=== PATIENT | female | born 1940 | race Caucasian/White ===

== ENCOUNTER 2018-11-01 10:10 | Inpatient (IN) | payer MEDICARE ==
[~2018-11-01] VITALS: Ht 165.1 cm; Wt 68.6 kg
--- NOTE | 2018-11-01 10:16 | NUR ---
ED Nurse Note: PT BROUGHT IN BY [id number] FROM HOME. AOX4. PT C/O RIGHT AND LEFT HIP , 03/21 AFTER FALL X LAST NIGHT. PT STATES SHE DID HIT HER HEAD WHEN FALLING BUT DENIES LOC. CIRCULATION AND SENSATION INTACT, CAP REFILL <3 SECOND, 5/5 MUSCLE STRENGTH OF FEET. SKIN CLEAN, DRY, AND INTACT.
[2018-11-01 10:18] VITALS: BP 136/84
--- NOTE | 2018-11-01 10:21 | NUR ---
ED Nurse Note: JOHNSON CATHETER PLACED USING STERILE TECHNIQUE. JOHNSON CATHETER IS PATENT AND DRAINING CLEAR YELLOW URINE. PT TOLERATED PROCEDURE WELL.
[2018-11-01] MEDS ORDERED: Ketorolac 30mg Inj IV ONE (10:30)
--- NOTE | 2018-11-01 10:50 | NUR ---
ED Nurse Note: PT TO XRAY VIA [facility]
[2018-11-01 11:15] LABS: HEMATOCRIT 41.8 % (37.0-47.0); HEMOGLOBIN 13.9 G/DL (12.0-16.0); MEAN CORPUSCULAR VOLUME 89 FL (80-99); PLATELET COUNT 322 K/UL (150-450); RED BLOOD COUNT 4.72 M/UL (4.20-5.40); RED CELL DISTRIBUTION WIDTH 12.7 % (11.6-14.8); WHITE BLOOD COUNT 13.7 K/UL (4.8-10.8)
[2018-11-01 11:16] LABS: APPEARANCE,URINE CLEAR; BILIRUBIN, URINE NEGATIVE (NEGATIVE); COLOR,URINE PALE YELLOW; GLUCOSE, URINE (UA) 2+ (NEGATIVE); KETONES,URINE 4+ (NEGATIVE); LEUKOCYTE ESTERASE ,URINE NEGATIVE (NEGATIVE); NITRITE,URINE NEGATIVE (NEGATIVE); PH,URINE 5 (4.5-8.0); PROTEIN,URINE 3+ (NEGATIVE); UROBILINOGEN,URINE NORMAL MG/DL (0.0-1.0)
[2018-11-01 11:30] LABS: ANION GAP 14 mmol/L (5-15); BLOOD UREA NITROGEN 13 mg/dL (7-18); CALCIUM 9.7 MG/DL (8.5-10.1); CARBON DIOXIDE 23 MMOL/L (21-32); CHLORIDE 103 MMOL/L (98-107); CREATININE 0.7 MG/DL (0.55-1.30); POTASSIUM 3.6 MMOL/L (3.5-5.1); SODIUM 140 MMOL/L (136-145)
[2018-11-01 11:43] LABS: ALANINE AMINOTRANSFERASE 40 U/L (12-78); ALBUMIN 4.1 G/DL (3.4-5.0); ALBUMIN/GLOBULIN RATIO 0.9 (1.0-2.7); ALKALINE PHOSPHATASE 103 U/L (46-116); ASPARTATE AMINO TRANSFERASE 100 U/L (15-37); BILIRUBIN,TOTAL 0.7 MG/DL (0.2-1.0)
--- NOTE | 2018-11-01 11:44 | NUR ---
ED Nurse Note: PT BACK FROM [facility] VIA [facility]
[2018-11-01 11:48] VITALS: BP 148/88
--- NOTE | 2018-11-01 12:45 | Diagnostic Imaging Report ---
Indication: Chest pain and trauma Technique: One view of the chest Comparison: none Findings: No acute infiltrates, effusions, or congestion. Tortuous calcified aorta. Normal heart size. Upper mediastinum unremarkable. There are degenerative changes of the right shoulder Impression: No acute process.
--- NOTE | 2018-11-01 12:50 | Diagnostic Imaging Report ---
Indication: Reason For Exam: TRAUMA Technique: One view of the pelvis, 2 views of the right hip Comparison: none Findings: There is a fracture of the femoral neck. This is a poorly displaced. Uterine fibroids are demonstrated. There is a Pineda catheter within the bladder. Bones are osteoporotic. There are degenerative changes of the pubic symphysis Impression: Positive for right femoral neck fracture
[2018-11-01] MEDS ORDERED: Metoprolol 5mg/5ml Inj IVP STA ×2 (13:14→15:07)
[2018-11-01] MEDS ORDERED: Sodium Chloride 550 ML IV SCH (13:15)
[2018-11-01 13:38] VITALS: BP 158/71
--- NOTE | 2018-11-01 13:41 | Emergency Room Report ---
History of Present Illness General Chief Complaint: Multiple Trauma/Fall Source: Patient, EMS Present Illness HPI Patient presents via EMS. She fell trying to get groceries out of her car. She believes she stepped on 1 of her shoes and fell onto her right hip. She was unable to get up. She denies any head trauma. She was on the ground for a period of time. Neighbors saw her trunk open and found her on the ground. EMS was called. She was unable to stand. She tries to move her right hip there is pain.She rates that pain 9/10. .If she is not moving pain is minimal. It is aching and sharp. He was cold outside and she feels cold at this time. She has some shivering. Patient denies any chest pain, palpitations, weakness, nausea, vomiting, diarrhea, dysuria, upper respiratory symptoms or rashes. In the past 2 days she has been able to eat without difficulty. She has a history of hypertension Allergies: Coded Allergies: No Known Allergies (Unverified , 11/01/18) Patient History Past Medical History: see triage record Social History: Denies: smoking, alcohol use, drug use Social History Narrative Lives by herself Reviewed Nursing Documentation: PMH: Agreed; PSxH: Agreed Nursing Documentation-PMH Hx Hypertension: Yes Review of Systems All Other Systems: negative except mentioned in HPI Physical Exam Vital Signs Date Time Temp Pulse Resp B/P (MAP) Pulse Ox O2 Delivery O2 Flow Rate FiO2 11/01/18 10:04 98.1 80 20 140/88 98 Room Air Sp02 EP Interpretation: reviewed, normal General Appearance: well appearing, no apparent distress, GCS 15 Head: normocephalic, atraumatic Eyes: bilateral eye normal inspection, bilateral eye PERRL, bilateral eye EOMI ENT: moist mucus membranes Neck: supple Respiratory: lungs clear, normal breath sounds Cardiovascular #1: regular rate, rhythm, no edema Cardiovascular #2: 2+ radial (R), 2+ dorsalis pedis (R) Gastrointestinal: normal inspection, normal bowel sounds, non tender, no mass, non-distended Genitourinary: no CVA tenderness Musculoskeletal: back normal, pelvis stable, decreased range of motion - Right hip with pain with passive range of motion no knee Neurologic: alert, oriented x3, cheese sprayer III-XII nml as tested, motor strength/tone normal, DTRs symmetric, sensory intact Psychiatric: mood/affect normal Skin: normal inspection, warm/dry Medical Decision Making Diagnostic Impression: Primary Impression: Hip fracture, right Qualified Codes: S72.001A - Fracture of unspecified part of neck of right femur, initial encounter for closed fracture Additional Impressions: NSTEMI (non-ST elevated myocardial infarction) Leukocytosis Qualified Codes: D72.829 - Elevated white blood cell count, unspecified ER Course Patient presents after non-syncopal fall with right hip pain. Differential includes fracture, contusion amongst others. Evaluation will be with EKG, chest x-ray, x-rays of the hip and pelvis as well as labs. Patient will be treated with analgesia. She is warmed with warm blankets. EKG sinus tachycardia without injury. Labs significant for positive troponin. Chest x-ray no infiltrates. Hip and pelvis reveal surgical neck fracture. Leukocytosis. Elevated lactic acid Aspirin and metoprolol given. No identified source of infection. Leukocytosis may be related to fall. Discussed with Dr. Melissa Ariza EPRP - decision keep patient here for repeat troponin determinations and adequate analgesia. Contacted Dr. Rios for admission. Contact Dr. Lane for consultation. Laboratory Tests Test 11/01/18 10:51 11/01/18 13:25 11/01/18 17:00 White Blood Count 13.7 K/UL (4.8-10.8) H Red Blood Count 4.72 M/UL (4.20-5.40) Hemoglobin 13.9 G/DL (12.0-16.0) Hematocrit 41.8 % (37.0-47.0) Mean Corpuscular Volume 89 FL (80-99) Mean Corpuscular Hemoglobin 29.5 PG (27.0-31.0) Mean Corpuscular Hemoglobin Concent 33.4 G/DL (32.0-36.0) Red Cell Distribution Width 12.7 % (11.6-14.8) Platelet Count 322 K/UL (150-450) Mean Platelet Volume 6.0 FL (6.5-10.1) L Neutrophils (%) (Auto) % (45.0-75.0) Lymphocytes (%) (Auto) % (20.0-45.0) Monocytes (%) (Auto) % (1.0-10.0) Eosinophils (%) (Auto) % (0.0-3.0) Basophils (%) (Auto) % (0.0-2.0) Differential Total Cells Counted 100 Neutrophils % (Manual) 89 % (45-75) H Lymphocytes % (Manual) 8 % (20-45) L Monocytes % (Manual) 1 % (1-10) Eosinophils % (Manual) 0 % (0-3) Basophils % (Manual) 0 % (0-2) Band Neutrophils 2 % (0-8) Platelet Estimate Adequate Platelet Morphology Normal Prothrombin Time 10.3 SEC (9.30-11.50) Prothrombin Time INR 1.0 (0.9-1.1) PTT 25 SEC (23-33) Urine Color Pale yellow Urine Appearance Clear Urine pH 5 (4.5-8.0) Urine Specific [place] 1.020 (1.005-1.035) Urine Protein 3+ (NEGATIVE) H Urine Glucose (UA) 2+ (NEGATIVE) H Urine Ketones 4+ (NEGATIVE) H Urine Blood 5+ (NEGATIVE) H Urine Nitrite Negative (NEGATIVE) Urine Bilirubin Negative (NEGATIVE) Urine Urobilinogen Normal MG/DL (0.0-1.0) Urine Leukocyte Esterase Negative (NEGATIVE) Urine RBC 2-4 /HPF (0 - 2) H Urine WBC 0-2 /HPF (0 - 2) Urine Squamous Epithelial Cells Occasional /LPF Urine Bacteria Few /HPF (NONE) Sodium Level 140 MMOL/L (136-145) Potassium Level 3.6 MMOL/L (3.5-5.1) Chloride Level 103 MMOL/L (98-107) Carbon Dioxide Level 23 MMOL/L (21-32) Anion Gap 14 mmol/L (5-15) Blood Urea Nitrogen 13 mg/dL (7-18) Creatinine 0.7 MG/DL (0.55-1.30) Estimate Glomerular Filtration Rate mL/min (>60) Glucose Level 143 MG/DL (74-106) H Lactic Acid Level 3.00 mmol/L (0.4-2.0) H 2.10 mmol/L (0.66-2.22) Calcium Level 9.7 MG/DL (8.5-10.1) Total Bilirubin 0.7 MG/DL (0.2-1.0) Aspartate Amino Transferase (AST) 100 U/L (15-37) H Alanine Aminotransferase (ALT) 40 U/L (12-78) Alkaline Phosphatase 103 U/L (46-116) Troponin I 1.953 ng/mL (0.000-0.056) 2.482 ng/mL (0.000-0.056) Total Protein 8.5 G/DL (6.4-8.2) H Albumin 4.1 G/DL (3.4-5.0) Globulin 4.4 g/dL Albumin/Globulin Ratio 0.9 (1.0-2.7) L Thyroid Stimulating Hormone (TSH) 0.892 uiU/mL (0.358-3.740) EKG Diagnostic Results Rate: tachycardiac Rhythm: NSR ST Segments: no acute changes Rhythm Strip Diag. Results EP Interpretation: yes Rhythm: no PVC's, no ectopy, other - ST Chest X-Ray Diagnostic Results Chest X-Ray Diagnostic Results : Chest X-Ray Ordered: Yes # of Views/Limited/Complete: 1 View Indication: Other EP Interpretation: Yes Interpretation: no consolidation, no effusion, no pneumothorax Impression: No acute disease Electronically Signed by: Electronically signed by Adrian Reyes MD Other X-Ray Diagnostic Results Other X-Ray Diagnostic Results #1: X-Ray ordered: Pelvis # of Views/Limited Vs Complete: 1 View Indication: Pain Interpretation: no dislocation, no soft tissue swelling, other - Right hip fracture Impression: Other Electronically Signed by: Electronically signed by Adrian Reyes MD Other X-Ray Diagnostic Results #2: X-Ray ordered: Right hip # of Views/Limited Vs Complete: 3 View Indication: Pain Interpretation: no dislocation, no soft tissue swelling, other - Regular fracture Impression: Other Electronically Signed by: Electronically signed by Adrian Reyes MD Last Vital Signs Date Time Temp Pulse Resp B/P (MAP) Pulse Ox O2 Delivery O2 Flow Rate FiO2 11/01/18 20:54 90 154/75 11/01/18 20:16 97.6 22 100 Room Air Status: improved Disposition: ADMITTED INPATIENT Condition: Serious Referrals: [facility] (PCP) Adrian Reyes MD Nov 01, 2018 13:41
[2018-11-01] MEDS ORDERED: Zolpidem 5mg tab ORAL PRN (15:45)
[2018-11-01] MEDS ORDERED: Morphine Sulfate 2mg/ml Inj(IV/IM USE ONLY) IVP PRN (15:45)
[2018-11-01] MEDS ORDERED: LORazepam Inj 2mg/ml 1ml IV PRN (15:45)
[2018-11-01] MEDS ORDERED: Miralax 17gm pkt ORAL PRN (15:45)
[2018-11-01] MEDS ORDERED: Morphine Sulfate 4mg/ml Inj (IV USE ONLY) IVP PRN (15:45)
[2018-11-01] MEDS ORDERED: Mylanta II UD 30ml ORAL PRN (15:45)
--- NOTE | 2018-11-01 16:28 | NUR ---
ED Nurse Note: called laborer cheesemaking for repeat Troponin level.
--- NOTE | 2018-11-01 16:36 | Cardiology Report ---
APPROVED REPORT EXAM: Two-dimensional and M-mode echocardiogram with Doppler and color Doppler. INDICATION LV FUNCTION M-Mode DIMENSIONS IVSd1.1 (0.7-1.1cm)Left Atrium (MM)1.9 (1.6-4.0cm) LVDd3.4 (3.5-5.6cm)Aortic Root2.7 (2.0-3.7cm) PWd1.0 (0.7-1.1cm)Aortic Cusp Exc.1.6 (1.5-2.0cm) IVSs1.1 cm LVDs2.4 (2.5-4.0cm) PWs1.0 cm Normal left ventricular chamber size, systolic function and wall motion. Left ventricular ejection fraction estimated to be 60%. No evidence of left ventricular hypertrophy. No evidence pericardial fat or effusion. All other cardiac chamber sizes are within normal limits. Aortic valve sclerosis with adequate cusp excursion. Thickened mitral valve leaflets with normal excursion. Cannot rule out vegetation. Mild mitral annulus and aortic root calcification. Pulmonic valve not well visualized. IVC at normal size with physiologic collapse . A color flow and spectral Doppler study was performed and revealed: No aortic regurgitation. Mitral diastolic velocities suggest reduced left ventricular relaxation c/w mild LV diastolic dysfunction (Grade I ). Trace mitral regurgitation. Mild tricuspid regurgitation. Tricuspid systolic velocities suggests peak right ventricular systolic pressure of 52 mmHg,consistent with moderate pulmonary hypertension .
--- NOTE | 2018-11-01 16:44 | NUR ---
ED Nurse Note: CLAUDIA LOJA (DAUGHTER IN LAW): [phone]
--- NOTE | 2018-11-01 16:50 | Cardiac Electrophysiology PN ---
Subjective Subjective [id number] Objective Last 24 Hour Vital Signs Date Time Temp Pulse Resp B/P (MAP) Pulse Ox O2 Delivery O2 Flow Rate FiO2 11/01/18 15:10 100 145/62 11/01/18 13:38 97.4 87 20 158/71 100 Room Air 11/01/18 13:27 111 146/65 11/01/18 11:48 98.4 86 20 148/88 99 Room Air 11/01/18 10:18 98.3 76 18 136/84 99 Room Air 11/01/18 10:18 76 18 Room Air 11/01/18 10:04 98.1 80 20 140/88 98 Room Air Laboratory Tests Test 11/01/18 10:51 11/01/18 13:25 White Blood Count 13.7 K/UL (4.8-10.8) H Red Blood Count 4.72 M/UL (4.20-5.40) Hemoglobin 13.9 G/DL (12.0-16.0) Hematocrit 41.8 % (37.0-47.0) Mean Corpuscular Volume 89 FL (80-99) Mean Corpuscular Hemoglobin 29.5 PG (27.0-31.0) Mean Corpuscular Hemoglobin Concent 33.4 G/DL (32.0-36.0) Red Cell Distribution Width 12.7 % (11.6-14.8) Platelet Count 322 K/UL (150-450) Mean Platelet Volume 6.0 FL (6.5-10.1) L Neutrophils (%) (Auto) % (45.0-75.0) Lymphocytes (%) (Auto) % (20.0-45.0) Monocytes (%) (Auto) % (1.0-10.0) Eosinophils (%) (Auto) % (0.0-3.0) Basophils (%) (Auto) % (0.0-2.0) Differential Total Cells Counted 100 Neutrophils % (Manual) 89 % (45-75) H Lymphocytes % (Manual) 8 % (20-45) L Monocytes % (Manual) 1 % (1-10) Eosinophils % (Manual) 0 % (0-3) Basophils % (Manual) 0 % (0-2) Band Neutrophils 2 % (0-8) Platelet Estimate Adequate Platelet Morphology Normal Prothrombin Time 10.3 SEC (9.30-11.50) Prothromb Time International Ratio 1.0 (0.9-1.1) Activated Partial Thromboplast Time 25 SEC (23-33) Urine Color Pale yellow Urine Appearance Clear Urine pH 5 (4.5-8.0) Urine Specific [place] 1.020 (1.005-1.035) Urine Protein 3+ (NEGATIVE) H Urine Glucose (UA) 2+ (NEGATIVE) H Urine Ketones 4+ (NEGATIVE) H Urine Blood 5+ (NEGATIVE) H Urine Nitrite Negative (NEGATIVE) Urine Bilirubin Negative (NEGATIVE) Urine Urobilinogen Normal MG/DL (0.0-1.0) Urine Leukocyte Esterase Negative (NEGATIVE) Urine RBC 2-4 /HPF (0 - 2) H Urine WBC 0-2 /HPF (0 - 2) Urine Squamous Epithelial Cells Occasional /LPF Urine Bacteria Few /HPF (NONE) Sodium Level 140 MMOL/L (136-145) Potassium Level 3.6 MMOL/L (3.5-5.1) Chloride Level 103 MMOL/L (98-107) Carbon Dioxide Level 23 MMOL/L (21-32) Anion Gap 14 mmol/L (5-15) Blood Urea Nitrogen 13 mg/dL (7-18) Creatinine 0.7 MG/DL (0.55-1.30) Estimat Glomerular Filtration Rate mL/min (>60) Glucose Level 143 MG/DL (74-106) H Lactic Acid Level 3.00 mmol/L (0.4-2.0) H 2.10 mmol/L (0.66-2.22) Calcium Level 9.7 MG/DL (8.5-10.1) Total Bilirubin 0.7 MG/DL (0.2-1.0) Aspartate Amino Transf (AST/SGOT) 100 U/L (15-37) H Alanine Aminotransferase (ALT/SGPT) 40 U/L (12-78) Alkaline Phosphatase 103 U/L (46-116) Troponin I 1.953 ng/mL (0.000-0.056) Total Protein 8.5 G/DL (6.4-8.2) H Albumin 4.1 G/DL (3.4-5.0) Globulin 4.4 g/dL Albumin/Globulin Ratio 0.9 (1.0-2.7) L Thyroid Stimulating Hormone (TSH) 0.892 uiU/mL (0.358-3.740) Adan Berman MD Nov 01, 2018 16:50
--- NOTE | 2018-11-01 17:45 | NUR ---
ED Nurse Note: Dr. Perez notified of Troponin level 2.482.
--- NOTE | 2018-11-01 18:26 | NUR ---
ED Nurse Note: SDU CALLED FOR PT REPORT. PER CHARGE, ROOM STILL NOT READY. WILL CALL BACK IN 15-20 MINUTES PER CHARGE.
--- NOTE | 2018-11-01 19:05 | NUR ---
ED Nurse Note: report recieved from estela vidal pt stable awaiting room transfer
--- NOTE | 2018-11-01 19:38 | NUR ---
ED Nurse Note: ATTEMPTED TO GIVE TELEPHONE REPORT TO SHANICE GONZALES. UNABLE TO DO SO AT THIS TIME.
[2018-11-01 20:00] VITALS: BP 154/75
--- NOTE | 2018-11-01 20:01 | NUR ---
ED Nurse Note: TELEPHONE REPORT GIVE TO SHANICE GONZALES
--- NOTE | 2018-11-01 20:10 | NUR ---
NURSE NOTES: Received report from Janette RN, pt. brought up from ER, pt. in bed awake/ alert x's 3- alert to name, and place- pt. is able to make need known. Cardiac monitoring placed, pt.appears to be sating well on room air at 97%- no distress noted full body assessment done- skin intact- pt. has purplish discoloration to left wrist/ forearm area, scab to Rt. knee and Rt. knee area, pt. has Pineda intact and draining to gravity, bed alarm on, side rails up x's3 and safety brakes engaged, call light within easy reach and safety brakes engaged, pt. has RFA 22G- IV intact and patent, pt. appears to be resting comfortably in bed, bed bath given and linens changed, safety measures continued, will continue with plan of care.
--- NOTE | 2018-11-01 20:14 | NUR ---
ED Nurse Note: PT WAS TRASNFERRED TO SDU WITH MCKENZIE, EMT AND ELIJAH RN ACCOMPANIED BY [employer]ICAL MIXER. ALL PT BELONGINGS GIVEN TO PT, PT IS AOX4, ON ROOM AIR, SKIN INTACT, PT IS IN NO DISTRESS VSS
--- NOTE | 2018-11-01 20:15 | Consultation ---
DATE OF CONSULTATION: 11/01/2018 CARDIOLOGY CONSULTATION CONSULTING PHYSICIAN: Adan Berman M.D. REFERRING PHYSICIAN: Yon Rios M.D. REASON FOR CONSULTATION: Non-ST elevation myocardial infarction in a patient with history of hypertension, hip fracture. HISTORY OF PRESENT ILLNESS: The patient is a 77-year-old lady with history of hypertension, had a fall that resulted in right hip fracture. The patient is a [place] patient. At the time of my evaluation, the patient is still in the emergency room. Denies any chest pain or palpitation or shortness of breath. In the ER, her blood pressure was 140/88, pulse of 80, respirations 20, and temperature 98.1. PHYSICAL EXAMINATION: HEAD AND NECK: Shows no JVD or carotid bruit. LUNGS: Clear. CARDIOVASCULAR: Regular S1 and S2 with no gallop or murmur. ABDOMEN: Soft. EXTREMITIES: Right hip external rotation. LABORATORY AND DIAGNOSTIC DATA: Her laboratories show white count of 13.7, hemoglobin of 13.9, hematocrit 41.8, and platelet count is 322. Her sodium is 140, potassium 3.6, BUN of 13, and creatinine of 0.7. Her troponin is 1.953. Her TSH is 0.892. EKG showed sinus tachycardia with nonspecific ST-T wave abnormalities. ASSESSMENT/PLAN: 1. Non-ST elevation myocardial infarction. The patient's troponin is 1.95. EKG does not show any ST elevation. The patient denies any chest pain in the emergency room. We will completely rule out myocardial infarction protocol and repeat EKG and get an echocardiogram to evaluate for ejection fraction and wall motion abnormality. In the meantime, keep the patient on aspirin and beta-suzy. Avoid full anticoagulation in view of her hip fracture. 2. Hypertension. Keep the patient on metoprolol 25 mg. 3. Right hip fracture. Ortho evaluation is pending. Thank you very much, Dr. Rios, for allowing me to participate in the care of this patient. Please do not hesitate to contact me for any questions regarding my evaluation. Sincerely, Adan Berman M.D. DR: LUCIANA/donavan JOB#: [id number] CC:
[2018-11-01] MEDS: Heparin 5000 units/ml inj SUBQ SCH (20:54)
[2018-11-01] MEDS: Metoprolol Tartrate 12.5mg TAB ORAL SCH (20:54)
[2018-11-01] MEDS: D5 1/2NS 1,000 ML IV SCH (20:59)
[2018-11-02] VITALS: BP 129/69
[2018-11-02 03:28] LABS: BASOPHILS % (AUTO) 0.7 % (0.0-2.0); HEMATOCRIT 35.4 % (37.0-47.0); HEMOGLOBIN 11.9 G/DL (12.0-16.0); LYMPHOCYTES % (AUTO) 18.6 % (20.0-45.0); MEAN CORPUSCULAR VOLUME 88 FL (80-99); MONOCYTES % (AUTO) 6.4 % (1.0-10.0); NEUTROPHILS % (AUTO) 74.3 % (45.0-75.0); PLATELET COUNT 270 K/UL (150-450); RED CELL DISTRIBUTION WIDTH 12.9 % (11.6-14.8); WHITE BLOOD COUNT 13.4 K/UL (4.8-10.8)
[2018-11-02 03:56] LABS: ALANINE AMINOTRANSFERASE 42 U/L (12-78); ALBUMIN 3.3 G/DL (3.4-5.0); ALKALINE PHOSPHATASE 83 U/L (46-116); ANION GAP 9 mmol/L (5-15); ASPARTATE AMINO TRANSFERASE 114 U/L (15-37); BILIRUBIN,TOTAL 0.5 MG/DL (0.2-1.0); BLOOD UREA NITROGEN 20 mg/dL (7-18); CALCIUM 8.8 MG/DL (8.5-10.1); CARBON DIOXIDE 27 MMOL/L (21-32); CHLORIDE 107 MMOL/L (98-107); CHOLESTEROL 234 MG/DL (< 200); CREATININE 0.7 MG/DL (0.55-1.30); HDL CHOLESTEROL 102 MG/DL (40-60); POTASSIUM 3.1 MMOL/L (3.5-5.1); SODIUM 143 MMOL/L (136-145); TRIGLYCERIDES 74 MG/DL (30-150)
[2018-11-02 04:00] VITALS: BP 134/64
--- NOTE | 2018-11-02 07:07 | NUR ---
HAND-OFF: Report given to Nena PRASAD, pt. remains stable and no signs of distress noted.
--- NOTE | 2018-11-02 07:18 | Consultation ---
Consult Note Consult Note patient seen and evaluated. Right Hip subcapital femoral neck fracture. Will need a hip hemiarthroplasty. Ok to transfer to [place] once [place] is ruled out by cardiology. If not transfered, will consider proceeding with right hip hemiarthroplasty. Thank you Malik Singh MD Nov 02, 2018 07:18
--- NOTE | 2018-11-02 07:52 | NUR ---
NURSE NOTES: Report received from SHANICE uW. Observed patient in bed sleeping. Arousable by voice and verbally responsive with confusion. No s/s of pain at this time. IV site intact with ongoing IVF running at prescribed rate. No distress noted in room air. F/C intact and draining well. Bed in lowest position. Call light within reach. Will continue to monitor.
--- NOTE | 2018-11-02 07:55 | NUR ---
NURSE NOTES: Called and spoke with Dr. Barragan regarding low potassium level with new order. Order carried out.
[2018-11-02 08:00] VITALS: BP 136/70
[2018-11-02] MEDS ORDERED: Aspirin EC 81mg tab ORAL SCH (09:00)
[2018-11-02] MEDS: Metoprolol Tartrate 12.5mg TAB ORAL SCH ×2 (09:01→20:18)
[2018-11-02] MEDS: Heparin 5000 units/ml inj SUBQ SCH ×2 (09:02→20:14)
--- NOTE | 2018-11-02 09:30 | NUR ---
NURSE NOTES: Spoke with ANISHA Don regarding transfer the patient to [place] for hip surgery. Florencia told me to get clearance from [facility] to transfer the patient. Will contact with Dr. Berman.
--- NOTE | 2018-11-02 09:37 | NUR ---
Social Service Note SW contacted [facility] [phone], no correctional case manager assigned at this time. Once they round this morning CM will contact SW for possible transfer. ANISHA discussed with primary nurse to obtain cardio clearance for transfer. Will follow up.
--- NOTE | 2018-11-02 09:58 | NUR ---
NURSE NOTES: Called and spoke with Dr. Berman to have clearance to transfer the patient to [place] for surgery. Dr. Berman said he will stop by. Awaiting for doctor to come.
[2018-11-02] MEDS ORDERED: Potassium Chloride 40 MEQ in Sodium Chloride 550 ML IVPB SCH (11:00)
--- NOTE | 2018-11-02 11:06 | Consultation ---
History of Present Illness General Date patient seen: Nov 02, 2018 Chief Complaint: Multiple Trauma/Fall Reason for Consultation: inpatient management Present Illness HPI 77 year old female with hx of HTN, Parkinson presented to ER via EMS after falling onto her right hip. She was unable to get up. She denies any head trauma. She was on the ground for a period of time. She was diagnosed to have a hip fracture and her troponin was positive as well ( I don't know if there was any reason to draw troponin). she is admitted to [facility]. She is currently awake and the hip pain seems to be controlled. Allergies: Coded Allergies: No Known Allergies (Unverified , 11/01/18) Medication History Unable to Obtain Active Prescriptions or Reported Meds Patient History Healthcare decision maker Resuscitation status Full Code Advanced Directive on File Past Medical/Surgical History Past Medical/Surgical History: (1) Parkinson disease (2) History of hypertension Review of Systems All Other Systems: negative except mentioned in HPI Physical Exam General Appearance: WD/WN Lines, tubes and drains: peripheral HEENT: normocephalic, anicteric Neck: non-tender, normal alignment Respiratory/Chest: chest wall non-tender, lungs clear Cardiovascular/Chest: normal peripheral pulses, normal rate, regular rhythm Abdomen: normal bowel sounds, non tender Genitourinary/Rectal: normal genital exam Extremities: normal range of motion Last 24 Hour Vital Signs Date Time Temp Pulse Resp B/P (MAP) Pulse Ox O2 Delivery O2 Flow Rate FiO2 11/02/18 09:01 98 136/70 11/02/18 08:00 96 11/02/18 08:00 Room Air 11/02/18 08:00 99.2 98 25 136/70 (92) 97 11/02/18 04:00 98.4 76 24 134/64 (87) 97 11/02/18 04:00 Room Air 11/02/18 04:00 78 11/02/18 00:00 98.9 80 16 129/69 (89) 97 11/02/18 00:00 93 11/02/18 00:00 Room Air 11/01/18 20:54 90 154/75 11/01/18 20:16 97.6 91 22 140/69 100 Room Air 11/01/18 20:10 Room Air 11/01/18 20:10 Room Air 2/20/19 20:10 96 11/01/18 20:00 98.9 92 22 154/75 (101) 98 11/01/18 15:10 100 145/62 11/01/18 13:38 97.4 87 20 158/71 100 Room Air 11/01/18 13:27 111 146/65 11/01/18 11:48 98.4 86 20 148/88 99 Room Air Intake and Output 11/01/18 11/02/18 19:00 07:00 Intake Total 1051 ml Output Total 400 ml Balance 651 ml Intake IV Total 1051 ml Output Urine Total 400 ml Laboratory Tests Test 11/01/18 13:25 11/01/18 17:00 11/02/18 02:54 Lactic Acid Level 2.10 mmol/L (0.66-2.22) Troponin I 2.482 ng/mL (0.000-0.056) 1.846 ng/mL (0.000-0.056) White Blood Count 13.4 K/UL (4.8-10.8) H Red Blood Count 4.00 M/UL (4.20-5.40) L Hemoglobin 11.9 G/DL (12.0-16.0) L Hematocrit 35.4 % (37.0-47.0) L Mean Corpuscular Volume 88 FL (80-99) Mean Corpuscular Hemoglobin 29.7 PG (27.0-31.0) Mean Corpuscular Hemoglobin Concent 33.7 G/DL (32.0-36.0) Red Cell Distribution Width 12.9 % (11.6-14.8) Platelet Count 270 K/UL (150-450) Mean Platelet Volume 6.4 FL (6.5-10.1) L Neutrophils (%) (Auto) 74.3 % (45.0-75.0) Lymphocytes (%) (Auto) 18.6 % (20.0-45.0) L Monocytes (%) (Auto) 6.4 % (1.0-10.0) Eosinophils (%) (Auto) 0.0 % (0.0-3.0) Basophils (%) (Auto) 0.7 % (0.0-2.0) Sodium Level 143 MMOL/L (136-145) Potassium Level 3.1 MMOL/L (3.5-5.1) L Chloride Level 107 MMOL/L (98-107) Carbon Dioxide Level 27 MMOL/L (21-32) Anion Gap 9 mmol/L (5-15) Blood Urea Nitrogen 20 mg/dL (7-18) H Creatinine 0.7 MG/DL (0.55-1.30) Estimat Glomerular Filtration Rate mL/min (>60) Glucose Level 124 MG/DL (74-106) H Calcium Level 8.8 MG/DL (8.5-10.1) Total Bilirubin 0.5 MG/DL (0.2-1.0) Aspartate Amino Transf (AST/SGOT) 114 U/L (15-37) H Alanine Aminotransferase (ALT/SGPT) 42 U/L (12-78) Alkaline Phosphatase 83 U/L (46-116) Total Protein 6.5 G/DL (6.4-8.2) Albumin 3.3 G/DL (3.4-5.0) L Globulin 3.2 g/dL Albumin/Globulin Ratio 1.0 (1.0-2.7) Triglycerides Level 74 MG/DL (30-150) Cholesterol Level 234 MG/DL (< 200) H LDL Cholesterol 106 mg/dL (<100) H HDL Cholesterol 102 MG/DL (40-60) H Cholesterol/HDL Ratio 2.3 (3.3-4.4) L Thyroid Stimulating Hormone (TSH) 1.320 uiU/mL (0.358-3.740) Height (Feet): 5 Height (Inches): 5.00 Weight (Pounds): 151 Medications Current Medications Medications (Trade) Dose Ordered Sig/Padma Route PRN Reason Start Time Stop Time Status Last Admin Dose Admin Acetaminophen (Tylenol) 650 mg Q4H PRN ORAL fever 11/01/18 15:45 12/01/18 15:44 Al Hydroxide/Mg Hydroxide (Mylanta II) 30 ml Q6H PRN ORAL dyspepsia 11/01/18 15:45 12/01/18 15:44 Aspirin (Ecotrin) 81 mg DAILY ORAL 11/02/18 09:00 12/02/18 08:59 11/02/18 09:01 Dextrose (Dextrose 50%) 25 ml Q30M PRN IV Hypoglycemia 11/01/18 15:45 12/01/18 15:44 Dextrose (Dextrose 50%) 50 ml Q30M PRN IV Hypoglycemia 11/01/18 15:45 12/01/18 15:44 Dextrose/Sodium Chloride 1,000 ml @ 50 mls/hr Q20H IV 11/01/18 15:35 12/01/18 15:34 11/01/18 20:59 Heparin Sodium (Porcine) (Heparin 5000 units/ml) 5,000 units EVERY 12 HOURS SUBQ 11/01/18 21:00 12/01/18 20:59 11/02/18 09:02 Levofloxacin 100 ml @ 100 mls/hr Q24H IVPB 11/02/18 10:45 11/09/18 10:44 UNV Lorazepam (Ativan 2mg/ml 1ml) 0.5 mg Q4H PRN IV For Anxiety 11/01/18 15:45 11/08/18 15:44 Metoprolol Tartrate (Lopressor) 12.5 mg Q12HR ORAL 11/01/18 21:00 12/01/18 20:59 11/02/18 09:01 Morphine Sulfate (Morphine Sulfate) 2 mg Q4H PRN IVP For Pain 4-6 11/01/18 15:45 11/08/18 15:44 11/02/18 09:01 Morphine Sulfate (Morphine Sulfate) 4 mg Q4H PRN IVP For Pain 7-10 11/01/18 15:45 11/08/18 15:44 Ondansetron HCl (Zofran) 4 mg Q6H PRN IVP Nausea & Vomiting 11/01/18 15:45 12/01/18 15:44 Polyethylene Glycol (Miralax) 17 gm HSPRN PRN ORAL Constipation 11/01/18 15:45 12/01/18 15:44 Potassium Chloride 100 ml @ 100 mls/hr Q1HR IVPB 11/02/18 12:00 11/02/18 15:59 Zolpidem Tartrate (Ambien) 5 mg HSPRN PRN ORAL Insomnia 11/01/18 15:45 11/08/18 15:44 Assessment/Plan Problem List: (1) NSTEMI (non-ST elevated myocardial infarction) ICD Codes: I21.4 - Non-ST elevation (NSTEMI) myocardial infarction SNOMED: 44314601 (2) Hip fracture, right ICD Codes: S72.001A - Fracture of unspecified part of neck of right femur, initial encounter for closed fracture SNOMED: 011300553 Qualifiers: Qualified Codes: S72.001A - Fracture of unspecified part of neck of right femur, initial encounter for closed fracture (3) Leukocytosis ICD Codes: D72.829 - Elevated white blood cell count, unspecified SNOMED: 152805751, 431591572 Qualifiers: Qualified Codes: D72.829 - Elevated white blood cell count, unspecified (4) History of hypertension ICD Codes: Z86.79 - Personal history of other diseases of the circulatory system SNOMED: 427968264 Assessment/Plan symptomatic treatment check electrolytes Echocardiogram serial EKG symptomatic treatment find out patients home medications, check electrolytes Shae Barragan MD Nov 02, 2018 11:06
[2018-11-02] MEDS: D5 1/2NS 1,000 ML IV SCH (11:28)
[2018-11-02 12:00] VITALS: BP 138/69
--- NOTE | 2018-11-02 13:19 | NUR ---
[facility] DEAN 77 YO FEMALE BIBA FROM HOME TO ER CC BILATERAL HIP PAIN S/P FALL SI; RIGHT HIP FRACTURE T. 98.1 HR 80 RR 20 B/P 140/88 WBC 13.7 AST 100 TROP 1.953 UA+ PROTEIN,GLUCOSE,RBC,BACTERIA,BLOOD CXR= NO ACUTE PROCESS PELVIS X-RAY= RIGHT FEMORAL NECK FRACTURE RIGHT HIP X-RAY= FRACTURE IS: TORADOL IV ZOFRAN IV ADMITTED TO STEP DOWN STEP DOWN STATUS DCP POSSIBLE TRANSFER TO [facility]
[2018-11-02] MEDS ORDERED: OXYBUTYNIN CHLOR5 M1 ORAL (13:49)
[2018-11-02] MEDS ORDERED: WELCHOL625 MG ORAL (13:49)
[2018-11-02] MEDS ORDERED: AVAPRO150 MG ORAL (13:49)
[2018-11-02] MEDS ORDERED: TRAZODONE HCL50 MG ORAL (13:49)
[2018-11-02] MEDS ORDERED: AMLODIPINE BESYL5 MG ORAL (13:49)
[2018-11-02] MEDS ORDERED: ASPIRIN-LOW81 MG ORAL (13:49)
[2018-11-02] MEDS ORDERED: TERAZOSIN HCL2 MG PO (13:49)
[2018-11-02] MEDS ORDERED: HYDROCHLOROTHIA25 MG ORAL (13:49)
[2018-11-02] MEDS ORDERED: DIOVAN HCT 80MG1 TAB ORAL (13:49)
[2018-11-02] MEDS ORDERED: COLESTID ORAL (13:49)
--- NOTE | 2018-11-02 13:59 | Anethesia Preoperative Eval ---
Anesthesia Pre-op PMH/ROS General Date of Evaluation: Nov 02, 2018 Time of Evaluation: 13:32 Anesthesiologist: Calixto ASA Score: ASA 3 Mallampati Score Class I : Soft palate, uvula, fauces, pillars visible Class II: Soft palate, uvula, fauces visible Class III: Soft palate, base of uvula visible Class IV: Only hard plate visible Mallampati Classification: Class II Surgeon: Francisco Diagnosis: R Hip Fracture Surgical Procedure: R Hip Hemiarthroplasty Anesthesia History: none Family History: no anesthesia problems Allergies: Coded Allergies: No Known Allergies (Unverified , 11/01/18) Medications: see eMAR Patient NPO?: Yes Past Medical History Cardiovascular: Reports: HTN, CAD - Non ST Segment Elevation IL, IL Hematology/Immune: Reports: anemia Anesthesia Pre-op Phys. Exam Physician Exam Last Vital Signs Date Time Temp Pulse Resp B/P (MAP) Pulse Ox O2 Delivery O2 Flow Rate FiO2 11/02/18 12:00 Room Air 11/02/18 12:00 88 11/02/18 09:01 136/70 11/02/18 08:00 99.2 25 97 Constitutional: NAD Neurologic: CN 2-12 intact Cardiovascular: RRR Respiratory: CTA Gastrointestinal: S/NT/ND Airway Exam Mallampati Score: Class II MO: limited ROM: limited Teeth: missing, intact Anesthesia Pre-op A/P Labs Hematology Test 11/02/18 02:54 White Blood Count 13.4 K/UL (4.8-10.8) H Red Blood Count 4.00 M/UL (4.20-5.40) L Hemoglobin 11.9 G/DL (12.0-16.0) L Hematocrit 35.4 % (37.0-47.0) L Mean Corpuscular Volume 88 FL (80-99) Mean Corpuscular Hemoglobin 29.7 PG (27.0-31.0) Mean Corpuscular Hemoglobin Concent 33.7 G/DL (32.0-36.0) Red Cell Distribution Width 12.9 % (11.6-14.8) Platelet Count 270 K/UL (150-450) Mean Platelet Volume 6.4 FL (6.5-10.1) L Neutrophils (%) (Auto) 74.3 % (45.0-75.0) Lymphocytes (%) (Auto) 18.6 % (20.0-45.0) L Monocytes (%) (Auto) 6.4 % (1.0-10.0) Eosinophils (%) (Auto) 0.0 % (0.0-3.0) Basophils (%) (Auto) 0.7 % (0.0-2.0) Chemistry Test 11/01/18 17:00 11/02/18 02:54 Troponin I 2.482 ng/mL (0.000-0.056) 1.846 ng/mL (0.000-0.056) Sodium Level 143 MMOL/L (136-145) Potassium Level 3.1 MMOL/L (3.5-5.1) L Chloride Level 107 MMOL/L (98-107) Carbon Dioxide Level 27 MMOL/L (21-32) Anion Gap 9 mmol/L (5-15) Blood Urea Nitrogen 20 mg/dL (7-18) H Creatinine 0.7 MG/DL (0.55-1.30) Estimat Glomerular Filtration Rate mL/min (>60) Glucose Level 124 MG/DL (74-106) H Calcium Level 8.8 MG/DL (8.5-10.1) Total Bilirubin 0.5 MG/DL (0.2-1.0) Aspartate Amino Transf (AST/SGOT) 114 U/L (15-37) H Alanine Aminotransferase (ALT/SGPT) 42 U/L (12-78) Alkaline Phosphatase 83 U/L (46-116) Total Protein 6.5 G/DL (6.4-8.2) Albumin 3.3 G/DL (3.4-5.0) L Globulin 3.2 g/dL Albumin/Globulin Ratio 1.0 (1.0-2.7) Triglycerides Level 74 MG/DL (30-150) Cholesterol Level 234 MG/DL (< 200) H LDL Cholesterol 106 mg/dL (<100) H HDL Cholesterol 102 MG/DL (40-60) H Cholesterol/HDL Ratio 2.3 (3.3-4.4) L Thyroid Stimulating Hormone (TSH) 1.320 uiU/mL (0.358-3.740) Risk Assessment & Plan Assessment: ASA 3 Plan: GA vs Spinal Status Change Before Surgery: No Pre-Antibiotics Drug: TBA De Luna,Victoriano MD Nov 02, 2018 13:59
--- NOTE | 2018-11-02 15:57 | Cardiac Electrophysiology PN ---
Assessment/Plan Assessment/Plan 1. Non-ST elevation myocardial infarction. The patient's troponin is 1.95, 2.0 and then 1.85. EKG does not show any ST elevation and just NS ST-T abnormality The patient denies any chest pain. Echocardiogram EF 60%. On aspirin and Lopressor 12.5 bid 2. Hypertension. Keep the patient on metoprolol 25 mg. 3. Right hip fracture. Ortho evaluated, needs surgery OK to transfer to [facility] Subjective Subjective Comfortable in NAD. No CP or SOB. In SR on tele. Objective Last 24 Hour Vital Signs Date Time Temp Pulse Resp B/P (MAP) Pulse Ox O2 Delivery O2 Flow Rate FiO2 11/02/18 12:00 Room Air 11/02/18 12:00 88 11/02/18 12:00 98.3 86 16 138/69 (92) 96 11/02/18 09:01 98 136/70 11/02/18 08:00 96 11/02/18 08:00 Room Air 11/02/18 08:00 99.2 98 25 136/70 (92) 97 11/02/18 04:00 98.4 76 24 134/64 (87) 97 11/02/18 04:00 Room Air 11/02/18 04:00 78 11/02/18 00:00 98.9 80 16 129/69 (89) 97 11/02/18 00:00 93 11/02/18 00:00 Room Air 11/01/18 20:54 90 154/75 11/01/18 20:16 97.6 91 22 140/69 100 Room Air 11/01/18 20:10 Room Air 11/01/18 20:10 Room Air 11/01/18 20:10 96 11/01/18 20:00 98.9 92 22 154/75 (101) 98 Intake and Output 11/01/18 11/02/18 19:00 07:00 Intake Total 1051 ml Output Total 400 ml Balance 651 ml Intake IV Total 1051 ml Output Urine Total 400 ml Laboratory Tests Test 11/01/18 17:00 11/02/18 02:54 11/02/18 15:15 Troponin I 2.482 ng/mL (0.000-0.056) 1.846 ng/mL (0.000-0.056) Pending White Blood Count 13.4 K/UL (4.8-10.8) H Red Blood Count 4.00 M/UL (4.20-5.40) L Hemoglobin 11.9 G/DL (12.0-16.0) L Hematocrit 35.4 % (37.0-47.0) L Mean Corpuscular Volume 88 FL (80-99) Mean Corpuscular Hemoglobin 29.7 PG (27.0-31.0) Mean Corpuscular Hemoglobin Concent 33.7 G/DL (32.0-36.0) Red Cell Distribution Width 12.9 % (11.6-14.8) Platelet Count 270 K/UL (150-450) Mean Platelet Volume 6.4 FL (6.5-10.1) L Neutrophils (%) (Auto) 74.3 % (45.0-75.0) Lymphocytes (%) (Auto) 18.6 % (20.0-45.0) L Monocytes (%) (Auto) 6.4 % (1.0-10.0) Eosinophils (%) (Auto) 0.0 % (0.0-3.0) Basophils (%) (Auto) 0.7 % (0.0-2.0) Sodium Level 143 MMOL/L (136-145) Potassium Level 3.1 MMOL/L (3.5-5.1) L Chloride Level 107 MMOL/L (98-107) Carbon Dioxide Level 27 MMOL/L (21-32) Anion Gap 9 mmol/L (5-15) Blood Urea Nitrogen 20 mg/dL (7-18) H Creatinine 0.7 MG/DL (0.55-1.30) Estimat Glomerular Filtration Rate mL/min (>60) Glucose Level 124 MG/DL (74-106) H Calcium Level 8.8 MG/DL (8.5-10.1) Total Bilirubin 0.5 MG/DL (0.2-1.0) Aspartate Amino Transf (AST/SGOT) 114 U/L (15-37) H Alanine Aminotransferase (ALT/SGPT) 42 U/L (12-78) Alkaline Phosphatase 83 U/L (46-116) Total Protein 6.5 G/DL (6.4-8.2) Albumin 3.3 G/DL (3.4-5.0) L Globulin 3.2 g/dL Albumin/Globulin Ratio 1.0 (1.0-2.7) Triglycerides Level 74 MG/DL (30-150) Cholesterol Level 234 MG/DL (< 200) H LDL Cholesterol 106 mg/dL (<100) H HDL Cholesterol 102 MG/DL (40-60) H Cholesterol/HDL Ratio 2.3 (3.3-4.4) L Thyroid Stimulating Hormone (TSH) 1.320 uiU/mL (0.358-3.740) Objective HEAD AND NECK: No JVD or carotid bruit. LUNGS: Clear. CARDIOVASCULAR: Regular S1 and S2 with no gallop or murmur. ABDOMEN: Soft. EXTREMITIES: Right hip external rotation. Adan Berman MD Nov 02, 2018 15:57
[2018-11-02 16:00] VITALS: BP 128/66
--- NOTE | 2018-11-02 16:00 | NUR ---
NURSE NOTES: Received call from Iesha from [facility] and asked me to fax H&P, progress note, diagnostic test results, and discharge note. Iesha told me that she will call us back after arrange the transportation and room number for the patient. Awaiting for call back.
--- NOTE | 2018-11-02 16:23 | Consultation ---
History of Present Illness General Date patient seen: Nov 02, 2018 Present Illness Allergies: Coded Allergies: No Known Allergies (Unverified , 11/01/18) Medication History Scheduled Amlodipine Besylate* (Amlodipine Besylate*), 5 MG ORAL DAILY, (Reported) Aspirin (Aspirin EC), 81 MG ORAL DAILY, (Reported) Colesevelam Hcl (Welchol), 1,250 MG ORAL DAILY, (Reported) Colestipol HCl (Colestid), 1 GM ORAL TWICE A DAY, (Reported) Hydrochlorothiazide* (Hydrochlorothiazide*), 25 MG ORAL DAILY, (Reported) Irbesartan* (Avapro*), 150 MG ORAL DAILY, (Reported) Oxybutynin Chloride (Oxybutynin Chloride), 5 MG ORAL DAILY, (Reported) Terazosin Hcl (Terazosin Hcl), 6 MG PO DAILY, (Reported) Trazodone Hcl* (Desyrel*), 50 MG ORAL BEDTIME, (Reported) Valsartan (Diovan), 1 TAB ORAL DAILY, (Reported) Patient History Healthcare decision maker Self Resuscitation status Full Code Advanced Directive on File Physical Exam Last 24 Hour Vital Signs Date Time Temp Pulse Resp B/P (MAP) Pulse Ox O2 Delivery O2 Flow Rate FiO2 11/02/18 16:00 Room Air 11/02/18 12:00 Room Air 11/02/18 12:00 88 11/02/18 12:00 98.3 86 16 138/69 (92) 96 11/02/18 09:01 98 136/70 11/02/18 08:00 96 11/02/18 08:00 Room Air 11/02/18 08:00 99.2 98 25 136/70 (92) 97 11/02/18 04:00 98.4 76 24 134/64 (87) 97 11/02/18 04:00 Room Air 11/02/18 04:00 78 11/02/18 00:00 98.9 80 16 129/69 (89) 97 11/02/18 00:00 93 11/02/18 00:00 Room Air 11/01/18 20:54 90 154/75 11/01/18 20:16 97.6 91 22 140/69 100 Room Air 11/01/18 20:10 Room Air 11/01/18 20:10 Room Air 11/01/18 20:10 96 11/01/18 20:00 98.9 92 22 154/75 (101) 98 Intake and Output 11/01/18 11/02/18 19:00 07:00 Intake Total 1051 ml Output Total 400 ml Balance 651 ml Intake IV Total 1051 ml Output Urine Total 400 ml Laboratory Tests Test 11/01/18 17:00 11/02/18 02:54 11/02/18 15:15 Troponin I 2.482 ng/mL (0.000-0.056) 1.846 ng/mL (0.000-0.056) 1.023 ng/mL (0.000-0.056) White Blood Count 13.4 K/UL (4.8-10.8) H Red Blood Count 4.00 M/UL (4.20-5.40) L Hemoglobin 11.9 G/DL (12.0-16.0) L Hematocrit 35.4 % (37.0-47.0) L Mean Corpuscular Volume 88 FL (80-99) Mean Corpuscular Hemoglobin 29.7 PG (27.0-31.0) Mean Corpuscular Hemoglobin Concent 33.7 G/DL (32.0-36.0) Red Cell Distribution Width 12.9 % (11.6-14.8) Platelet Count 270 K/UL (150-450) Mean Platelet Volume 6.4 FL (6.5-10.1) L Neutrophils (%) (Auto) 74.3 % (45.0-75.0) Lymphocytes (%) (Auto) 18.6 % (20.0-45.0) L Monocytes (%) (Auto) 6.4 % (1.0-10.0) Eosinophils (%) (Auto) 0.0 % (0.0-3.0) Basophils (%) (Auto) 0.7 % (0.0-2.0) Sodium Level 143 MMOL/L (136-145) Potassium Level 3.1 MMOL/L (3.5-5.1) L Chloride Level 107 MMOL/L (98-107) Carbon Dioxide Level 27 MMOL/L (21-32) Anion Gap 9 mmol/L (5-15) Blood Urea Nitrogen 20 mg/dL (7-18) H Creatinine 0.7 MG/DL (0.55-1.30) Estimat Glomerular Filtration Rate mL/min (>60) Glucose Level 124 MG/DL (74-106) H Calcium Level 8.8 MG/DL (8.5-10.1) Total Bilirubin 0.5 MG/DL (0.2-1.0) Aspartate Amino Transf (AST/SGOT) 114 U/L (15-37) H Alanine Aminotransferase (ALT/SGPT) 42 U/L (12-78) Alkaline Phosphatase 83 U/L (46-116) Total Protein 6.5 G/DL (6.4-8.2) Albumin 3.3 G/DL (3.4-5.0) L Globulin 3.2 g/dL Albumin/Globulin Ratio 1.0 (1.0-2.7) Triglycerides Level 74 MG/DL (30-150) Cholesterol Level 234 MG/DL (< 200) H LDL Cholesterol 106 mg/dL (<100) H HDL Cholesterol 102 MG/DL (40-60) H Cholesterol/HDL Ratio 2.3 (3.3-4.4) L Thyroid Stimulating Hormone (TSH) 1.320 uiU/mL (0.358-3.740) Height (Feet): 5 Height (Inches): 5.00 Weight (Pounds): 151 Medications Current Medications Medications (Trade) Dose Ordered Sig/Padma Route PRN Reason Start Time Stop Time Status Last Admin Dose Admin Acetaminophen (Tylenol) 650 mg Q4H PRN ORAL fever 11/01/18 15:45 12/01/18 15:44 Al Hydroxide/Mg Hydroxide (Mylanta II) 30 ml Q6H PRN ORAL dyspepsia 11/01/18 15:45 12/01/18 15:44 Aspirin (Ecotrin) 81 mg DAILY ORAL 11/02/18 09:00 12/02/18 08:59 11/02/18 09:01 Dextrose (Dextrose 50%) 25 ml Q30M PRN IV Hypoglycemia 11/01/18 15:45 12/01/18 15:44 Dextrose (Dextrose 50%) 50 ml Q30M PRN IV Hypoglycemia 11/01/18 15:45 12/01/18 15:44 Dextrose/Sodium Chloride 1,000 ml @ 50 mls/hr Q20H IV 11/01/18 15:35 12/01/18 15:34 11/02/18 11:28 Heparin Sodium (Porcine) (Heparin 5000 units/ml) 5,000 units EVERY 12 HOURS SUBQ 11/01/18 21:00 12/01/18 20:59 11/02/18 09:02 Levofloxacin 50 ml @ 50 mls/hr DAILY IVPB 11/03/18 09:00 11/10/18 08:59 Lorazepam (Ativan 2mg/ml 1ml) 0.5 mg Q4H PRN IV For Anxiety 11/01/18 15:45 11/08/18 15:44 Metoprolol Tartrate (Lopressor) 12.5 mg Q12HR ORAL 11/01/18 21:00 12/01/18 20:59 11/02/18 09:01 Morphine Sulfate (Morphine Sulfate) 2 mg Q4H PRN IVP For Pain 4-6 11/01/18 15:45 11/08/18 15:44 11/02/18 09:01 Morphine Sulfate (Morphine Sulfate) 4 mg Q4H PRN IVP For Pain 7-10 11/01/18 15:45 11/08/18 15:44 11/02/18 14:19 Ondansetron HCl (Zofran) 4 mg Q6H PRN IVP Nausea & Vomiting 11/01/18 15:45 12/01/18 15:44 Polyethylene Glycol (Miralax) 17 gm HSPRN PRN ORAL Constipation 11/01/18 15:45 12/01/18 15:44 Zolpidem Tartrate (Ambien) 5 mg HSPRN PRN ORAL Insomnia 11/01/18 15:45 11/08/18 15:44 Assessment/Plan Assessment/Plan (1) Right hip pain (2) Right hip Fx seen dictated. Anthony Carson Nov 02, 2018 16:23
--- NOTE | 2018-11-02 16:33 | NUR ---
NURSE NOTES: Dr. Berman said okay to transfer the patient to [facility]. Report given to SHANICE Julian from [facility]. Called and left message to Dr. Barragan to get discharge order. Awaiting for call back.
--- NOTE | 2018-11-02 17:03 | NUR ---
NURSE NOTES: Dr. Barragan called back and gave order to okay to transfer the patient to [place]. Order carried out.
--- NOTE | 2018-11-02 17:58 | NUR ---
NURSE NOTES: Called and left message to Chay Arnav (son) to inform his about transfer the patient to [facility] Awaiting for call back.
--- NOTE | 2018-11-02 18:05 | NUR ---
NURSE NOTES: Called and spoke with Magdalene Cartwright ([email or web address]) to inform her about patient will be transferred to [facility]. Magdalene made aware.
--- NOTE | 2018-11-02 18:30 | Consultation ---
DATE OF CONSULTATION: 11/02/2018 ORTHOPEDIC CONSULTATION: CONSULTING PHYSICIAN: Malik Singh M.D. REFERRING PHYSICIAN: Yon Rios M.D. REASON FOR CONSULTATION: Right-sided hip fracture. BRIEF HISTORY: The patient is a pleasant 77-year-old female with history of hypertension. She had a mechanical fall and landed on her right hip. She was brought into the emergency room at [facility] and a right-sided hip subcapital femoral neck fracture was diagnosed. At the same time, she was diagnosed with non-ST elevated myocardial infarction. Orthopedic consultation was obtained for the right hip and Cardiology consultation was obtained from Dr. Berman. Impression, the patient is stable. She is admitted to the hospital and under operator assistant i cementing's care. She is on aspirin. She is on beta-suzy. Full anticoagulation is not performed due to the hip fracture. It should be noted that socially, this patient lives alone and she is a member of the [facility]. PAST MEDICAL HISTORY: Significant for history of hypertension. PAST SURGICAL HISTORY: None. MEDICATIONS: Please see chart. ALLERGIES: No known drug allergies. SOCIAL HISTORY: She does not smoke or drink. She lives alone. She has 3 steps to go up. She uses a walker to ambulate. REVIEW OF SYSTEMS: Noncontributory. In fact, she does not have any chest pain and has not had any chest pain recently. PHYSICAL EXAMINATION: GENERAL: Examination of the patient revealed she is a very pleasant lady, cooperative for examination. EXTREMITIES: Examination of the right hip reveals that she is tender to palpation over the right hip. Motion causes pain. She had right leg shortened and externally rotated. NEUROLOGIC: She has normal neurological examination. DIAGNOSTIC DATA: X-ray of hip and pelvis are reviewed. There is osteopenia. There is evidence of right hip subcapital femoral neck fracture. IMPRESSION: 1. Right hip subcapital femoral neck fracture. 2. Non-ST elevated myocardial infarction, being followed by Dr. Berman. PLAN: At this time, I discussed with the patient. I explained to him my findings. The patient requires right hip hemiarthroplasty. Her cardiac status has to be stabilized and make sure she is stable. There is a possibility that the patient may need to be transferred to [facility] due to the insurance reasons. We will get that sorted out with management. If in fact, she will not be transferred, we will proceed with right hip hemiarthroplasty tomorrow and allowing today to stabilize her medically as best as possible to proceed with surgery. All questions were answered. Consent was obtained and the patient will be made NPO past midnight tonight. Thank you for allowing me to participate in the care of this patient. Malik Singh M.D. DR: CHRIS JOB#: [id number] CC:
--- NOTE | 2018-11-02 19:09 | History & Physical ---
History and Physical History & Physicial Dictated for Int Med-Dr Rios no. [id number]. Tyree Gutierrez MD Nov 02, 2018 19:09
--- NOTE | 2018-11-02 19:14 | NUR ---
HAND-OFF: Report given to SHANICE Wu. RN made aware of transfer to [facility] Stable condition.
--- NOTE | 2018-11-02 19:15 | NUR ---
NURSE NOTES: Received report from Nena RN, pt. in bed awake/ alert x's 3- alert to name, time and place- pt. is able to make need known. Cardiac monitoring on, pt.appears to be sating well on room air at 98%- no distress noted. Pineda intact and draining to gravity, bed alarm on, side rails up x's3 and safety brakes engaged, call light within easy reach and bed in lowest position, pt. has RFA 22G- IV intact and patent- running D5 1/2NS at 50cc/hr- iv intact and patent, pt. appears to be resting comfortably in bed, safety measures continued, will continue with plan of care.
[2018-11-02 20:00] VITALS: BP 126/62
--- NOTE | 2018-11-02 23:00 | History and Physical Report ---
DATE OF ADMISSION: 11/01/2018 CHIEF COMPLAINT: The patient is a 77-year-old white female, who presents with chief complaint of right hip pain. HISTORY OF PRESENT ILLNESS: The patient was apparently at the grocery store yesterday, 11/01/2018. The patient fell trying to get out of her car. The patient fell striking her right hip. The patient was unable to get up secondary to pain. The patient presented to [facility]. The patient was found to have right femoral neck fracture. The patient is admitted with right femoral neck fracture. REVIEW OF SYSTEMS: CONSTITUTIONAL: The patient denies weight loss or gain. The patient denies fevers or chills. HEENT: The patient denies earache or throat pain. The patient denies headache. CARDIOVASCULAR: The patient denies palpitations or chest pain. CHEST: The patient denies wheeze or shortness of breath. ABDOMEN: The patient denies nausea, vomiting, diarrhea, or constipation. GENITOURINARY: The patient denies dysuria or increased frequency of urination. PAST MEDICAL HISTORY: Significant for hypertension. PAST SURGICAL HISTORY: The patient denies. CURRENT MEDICATIONS: 1. Amlodipine 5 mg p.o. daily. 2. Aspirin 81 mg p.o. daily. 3. Welchol 1250 mg p.o. daily. 4. Colestid 1 g p.o. twice daily. 5. Hydrochlorothiazide 25 mg p.o. daily. 6. Avapro 150 mg p.o. daily. 7. Oxybutynin 5 mg p.o. daily. 8. Terazosin 2 mg p.o. daily. 9. Trazodone 50 mg p.o. nightly. ALLERGIES: No known drug allergies. SOCIAL HISTORY: The patient is and lives alone. The patient denies tobacco or alcohol use. PHYSICAL EXAMINATION: VITAL SIGNS: Temperature 98.1, respirations 20, pulse 80, and blood pressure 140/88. GENERAL: The patient is a well-developed and well-nourished white female, in no apparent distress. HEENT: Eyes, pupils are equal and responsive to light and accommodation. Extraocular movements are intact. NECK: Supple without lymphadenopathy. CHEST: Lungs are clear to auscultation bilaterally without wheezes or rales. CARDIOVASCULAR: Regular rate. S1 and S2 are normal without murmurs, rubs, or gallops. ABDOMEN: Soft, nontender, and nondistended. Positive bowel sounds. No evidence of hepatosplenomegaly. Currently, no rebound or guarding noted. EXTREMITIES: There is pain to palpation of the right hip. Otherwise, without clubbing, cyanosis, or edema. RECTAL: Refused. GENITAL: Refused. NEUROLOGIC: Cranial nerves II through XII are grossly intact without focal deficits. Motor strength is 5/5 bilaterally intact. Deep tendon reflexes are 2+, plantar. LABORATORY AND DIAGNOSTIC DATA: An x-ray of the right hip demonstrated a right femoral neck fracture. Laboratory studies, WBC 13.7, hemoglobin 13.9, hematocrit 41.8, and platelets 322,000. Sodium 140, potassium 3.6, chloride 103, CO2 23, BUN 13, creatinine 0.7, glucose 143. Lactic acid 3.0. Troponin elevated at 1.953. An EKG was normal sinus rhythm at approximately 90 beats per minute. There were some nonspecific ST changes noted. ASSESSMENT: This is a 77-year-old white female with: 1. Right femoral neck fracture. 2. Idb-TA-pajtohyj myocardial infarction. 3. Hypertension. 4. Hypercholesterolemia. TREATMENT: 1. Right femur neck fracture. An Orthopedic consultation has been obtained with Dr. Singh. We will follow recommendations of Orthopedic Surgery. 2. Cfn-EU-fhluyetq myocardial infarction. A Cardiology consultation has been obtained with Dr. Adan Berman. We will follow recommendations of Cardiology. 3. Hypertension. Continue Avapro and amlodipine as above. 4. Hypercholesterolemia. Continue Welchol and Colestid as above. Tyree Rojo M.D. DR: MISSY JOB#: [id number] CC:
--- NOTE | 2018-11-02 23:40 | NUR ---
NURSE NOTES: Norma from [facility] pt. is being transferred to [facility] to room [facility] B - is report number- waiting for pt. to be picked up by [facility] ambulance.
[2018-11-03] VITALS: BP 134/78
--- NOTE | 2018-11-03 00:18 | NUR ---
NURSE NOTES: Report given to Lalita at [facility]- waiting for pt. to be picked up.
--- NOTE | 2018-11-03 00:21 | NUR ---
NURSE NOTES: left msg for Arnav Cartwright next of kin in pts chart regarding transfer- waiting for call back from pt. Addendum: 11/03/18 at 0024 by JANET MOODY RN RN correction to msg above - waiting for call back from family member.
--- NOTE | 2018-11-03 01:32 | NUR ---
HAND-OFF: Report given to Daniele from [facility] ambulance- pt. being transferred to [facility]- pt. appears to be stable and no distress noted.
[2018-11-03] MEDS ORDERED: Tubing IV Secondary IV ONE (01:56)
[2018-11-03] MEDS ORDERED: NS 275ml ONE (01:56)
[2018-11-03] MEDS ORDERED: D5 1/2NS 1000ml IV ONE (01:56)
[2018-11-03] MEDS ORDERED: Levofloxacin 250mg/D5W 50ml IVPB SCH (09:00)
--- NOTE | 2018-11-03 11:00 | Consultation ---
DATE OF CONSULTATION: 11/02/2018 PAIN MANAGEMENT CONSULTATION CONSULTING PHYSICIAN: Kelsey Gomez M.D. REFERRING PHYSICIAN: Shae Barragan M.D. PHYSICIAN CUSTOMER SERVICE ADVOCATE: Oneyda Mercer CHIEF COMPLAINT: Right hip pain. HISTORY OF PRESENT ILLNESS: This is an 77-year-old female who is being seen in the [facility] for initial pain management consultation. The patient is in bed she had a mechanical fall landing on her right hip and had a right subcapital femoral neck fracture and a wph-TU-dhorsdxgj myocardial infarction, admitted into the hospital and will be seen by Dr. Berman. At this time, the patient is in bed complaining of right hip pain and throbbing and sharp with movement. She was started on morphine 2 to 4 mg IV every 4 hours as needed. The patient to be transferred to [facility] once cleared by the wheat washer for further surgical intervention. PAST MEDICAL HISTORY: Hypertension. PAST SURGICAL HISTORY: Denies. SOCIAL HISTORY: Denies smoking tobacco, drinking alcohol, or IV drug abuse. ALLERGIES: No known drug allergies. MEDICATIONS: aspirin, Welchol, Colestid, hydrochlorothiazide, Avapro, oxybutynin, and Diovan. REVIEW OF SYSTEMS: Denies rash, fever, chills, sweating, dizziness, drowsiness, blurred vision, sore throat, or change in her weight. No shortness of breath. No blood in the stool or urine. No bowel or bladder incontinence. No dysuria. She is complaining of pain right hip pain. PHYSICAL EXAMINATION: GENERAL: Alert, awake, and oriented x3. VITAL SIGNS: Blood pressure 120/70, heart rate 68, oxygen saturation 96%, respiratory rate 16, and temperature 98.3 degrees Fahrenheit. HEENT: PERRLA. NECK: Range of motion is full in all directions. No tenderness to paracervical muscles. No adenopathy. LUNGS: Decreased breath sounds bilaterally. HEART: S1 and S2, regular. ABDOMEN: Soft and nontender. BACK: Range of motion is decreased in flexion and extension. No tenderness to paraspinal muscles or trapezius or rhomboid muscles. EXTREMITIES: Upper and lower extremity range of motion is full in all directions. No cyanosis. No clubbing. No edema. Sensory is intact. Reflexes are not obtainable. No adenopathy. . ASSESSMENT AND PLAN: This is a 77 y/o female with Right hip pain right hip fracture will be continued on morphine as needed. The patient was discussed with Dr. Gomez, and Dr. Gomez concurred. We will follow the patient. Thank you very much for the courtesy of this consultation. Kelsey Gomez M.D. LOUISE Mercer DR: [email or web address] JOB#: [id number] CC: LIANA
--- NOTE | 2018-11-05 15:17 | NUR ---
CASE MANAGEMENT: CM review and clinical information (face sheet/ consultation notes/ H&P/ ER MD Notes) faxed to FREDY/ELYSE @ [phone]. [facility] [id number]
--- NOTE | 2018-11-07 09:14 | Discharge Summary ---
Discharge Summary Discharge Summary _ DATE OF ADMISSION: 11/01/2018 DATE OF DISCHARGE: 11/03/19 DISCHARGED BY: Dr. Rios REASON FOR ADMISSION: 77 years old female with past medical history of hypertension, presented to emergency department after sustaining mechanical fall. She fell onto her right hip while trying to get groceries out of her car. She was unable to get up. She denied any head trauma. She was on the ground for some time. Neighbor seen her and called paramedics. Patient was unable to bear weight. Patient reported pain in the right hip, rated 9 out of 10, described as aching and sharp. Upon evaluation hip and pelvis x-ray revealed right femoral neck fracture. Chest x-ray revealed no acute cardiopulmonary pathology. Laboratory workup revealed leukocytosis with WBC 13.7, stable hemoglobin and hematocrit. Urinalysis revealed no evidence of UTI. Stable electrolytes and renal parameters. Lactic acid elevated 3.0. Troponin elevated 1.953. EKG revealed sinus rhythm, no acute ischemic changes. Patient was admitted to direct observational unit for further management. CONSULTANTS: electrician elevator maintenance Dr. Parker pulmonary Dr. Barragan orthopedic surgery Dr. Singh pain management Dr. Gomez [facility]: Patient admitted to direct observational unit. Patient started on antiplatelet therapy with aspirin and beta-suzy. Serial troponin were monitored. [employer] Reading Teacher emergently consulted. EKG showed no acute ST elevation. Patient denied chest pain. Per electrician elevator maintenance, continue antiplatelet therapy with aspirin and beta-suzy and avoid full anticoagulation in view of right hip fracture. Troponin showed initially elevation to 2.482 and then started to trend down, prior to transfer troponin 1.023. Echocardiogram revealed preserved ejection fraction of 60% with no evidence of left ventricular hypertrophy. No evidence of wall motion abnormality. Right ventricular systolic pressure of 52 consistent with moderate pulmonary hypertension. Supplemental oxygen provided as needed to keep pulse oximetry above 92%. Pulmonary toilet was on standby. Pulse oximetry was stable on room air. Patient started on empiric antibiotic due to leukocytosis and elevated lactic acid, although leukocytosis likely was reactive due to NSTEMI and fall. Blood pressure was stable with beta-suzy. Renal parameters and electrolytes were closely monitored, electrolytes corrected as neede, d and nephrotoxins were avoided. Pain management was addressed as per pain specialist recommendation. Bowel regimen instituted Orthopedic surgeon seen and evaluated patient. Patient will need right hip hemiarthroplasty. Patient need to be medically stabilized as best as possible to proceed with surgery. Patient consented to surgery. However due to insurance reasons, patient was transferred to [facility] to continue with further management. FINAL DIAGNOSES: NSTEMI Right femoral neck fracture secondary to mechanical fall Leukocytosis Hypertension DISCHARGE MEDICATIONS: List of medication was sent to accepting facility DISCHARGE INSTRUCTIONS: I have been assigned to dictate discharge summary for this account. I was not involved in the patient's management. Dyan Berg NP Nov 07, 2018 09:14
== END 2018-11-03 01:57 | disposition short-term general hospital (02) | DRG 280 ==
LOC: EDBD 10:10 → EMR 11:24 → EDBEDREQ 11:45 → EDBEDREQSVC 11:45 → 2W 12:41 → EDBEDREQ 18:06
DX: I21.4 Non-ST elevation (NSTEMI) myocardial infarction (principal); S72.011A Unspecified intracapsular fracture of right femur, initial encounter for closed fracture; Y92.89 Other specified places as the place of occurrence of the external cause; W19.XXXA Unspecified fall, initial encounter; I10 Essential (primary) hypertension; E78.00 Pure hypercholesterolemia, unspecified; Z79.82 Long term (current) use of aspirin; G20 Parkinson's disease
CPT/HCPCS: 36415; 71045; 72170; 80053; 80061; 81001; 83605; 84443; 84484; 85007; 85025; 85610; 85730; 86850; 86900; 86901; 93005; 93306; 96374; 96375; 96376; 99285; J2405